=== PATIENT | male | born 1985 | race Two or more races ===

== ENCOUNTER 2022-01-28 02:37 | Emergency (ER) | payer MEDICAID ==
[~2022-01-28] VITALS: Ht 162.6 cm; Wt 66.5 kg
[2022-01-28] MEDS ORDERED: levETIRAcetam 500 MG TAB PO ONE (08:00)
[2022-01-28 08:09] VITALS: BP 149/97
[2022-01-28] MEDS ORDERED: KEP500T PO (08:10)
[2022-01-28] MEDS ORDERED: DIVA500T2 PO (08:10)
== END 2022-01-28 08:45 | disposition home or self-care (01) ==
LOC: ER 02:37
DX: F31.9 Bipolar disorder, unspecified (principal); Z76.0 Encounter for issue of repeat prescription; Z86.69 Personal history of other diseases of the nervous system and sense organs